=== PATIENT | female | born 1975 | race Caucasian/White ===

== ENCOUNTER 2017-04-08 00:57 | Inpatient (IN) | payer OTHER ==
--- NOTE | ~2017-04-08 | HP ---
Unit #: [id number] #: [id number] Patient: PRICILA COY [id number] [facility]. [place], [place] [address] [id number] MR#: [id number] NAME: PRICILA COY ROOM: 241 Age: 42 Sex: F Admission Date: 04/08/2017 : 1975 Attending Physician: Blaise Painter M.D. Primary Care Physician: Adali Hernández M.D. HISTORY AND PHYSICAL CHIEF COMPLAINT Sore throat, hoarse voice, upper respiratory congestion, shortness of breath. HISTORY OF PRESENT ILLNESS The patient is a 42-year-old female with past medical history of tobacco usage, COPD, who presents to [facility] due to symptoms of shortness of breath, upper respiratory congestion as well as hoarse voice. This has been ongoing for the past three days. The patient tells me that she is allergic to fresh cut grass and her neighbor had cut some grass a couple of days ago. She has been out of her inhalers and has been having symptoms of shortness of breath, cough and congestion and presents to the emergency department for further evaluation. The patient states symptoms are similar to previous symptoms of acute COPD exacerbation. The patient is an active tobacco user. The patient states that she had quit three years ago but had started smoking again due to significant stress in her life. Currently, the patient denies chest pain, nausea, vomiting, diarrhea. The patient denies fevers and chills. The patient tells me that when she went downstairs and came back up she still got dyspneic but she is feeling better than when she originally came to the emergency department. PAST MEDICAL HISTORY Positive for tobacco usage. Positive for allergic rhinitis. Positive for COPD. PAST SURGICAL HISTORY Bilateral tubal ligation. SOCIAL HISTORY The patient lives at home with her father and her sons. The patient smokes a half to one pack a day for the past three days and the patient had quit nine years before that but the patient is a lifelong smoker. The patient drinks a couple of margaritas yearly. The patient does admit to smoking marijuana. FAMILY HISTORY The patient states is positive for cancer, hypertension, diabetes, coronary artery disease. ALLERGIES Latex and Ultram. The patient states she has severe nausea and vomiting with Ultram. Unit #: [id number] #: [id number] Patient: PRICILA COY HOME MEDICINES 1. Wellbutrin 150 mg orally twice daily. 2. Celexa listed as 20 mg orally at bedtime but the patient states that she no longer uses this. 3. Breo 100/25 mcg one puff inhaled daily. 4. The patient also uses an as needed albuterol inhaler. REVIEW OF SYSTEMS Notable for shortness of breath, coughing, hoarse voice, upper respiratory congestion. All other systems reviewed and otherwise negative. PHYSICAL EXAMINATION GENERAL APPEARANCE: The patient is a pleasant 42-year-old female sitting in bed in no apparent acute distress. VITAL SIGNS: Temperature 97.6. Pulse 106. Respiratory rate 21. Blood pressure 175/82. The patient is noted to have oxygen saturation of 95% on room air. HEAD, EYES, EARS, NOSE AND THROAT: Eyes: PERRLA. Extraocular motor muscles intact. Pharynx is benign. NECK: Supple without adenopathy or thyromegaly. CHEST: The patient does have bilateral expiratory wheezes at the bilateral bases. Upper chest with good air movement in and out. HEART: Normal S1, S2. The patient does have mild tachycardia. ABDOMEN: Bowel sounds are present. No hepatosplenomegaly. No tenderness. No mass. Nondistended. Nontender. EXTREMITIES: No pitting edema is noted. No drainage. No redness noted. NEUROLOGIC: The patient is awake, alert, oriented. Cranial nerves are intact. Strength is equal throughout. DIAGNOSTIC STUDIES LABORATORY: Chemistry: Glucose 138, BUN 7, creatinine 0.7, sodium 138, potassium 2.8, chloride 106, CO2 23, calcium 8.5. CBC with WBC of 15.5, RBC 4.54, hemoglobin 13.9, hematocrit 41.9, MCV 92.3, MCH 30.6, MCHC 33.1, RDW 13.6, platelets 242, MPV 8.0. Please note that strep throat screen is negative for strep DNA. IMAGING: The patient did have a chest x-ray. Portable view of the chest demonstrates mild pulmonary hyperinflation, which may represent underlying reactive airway disease. No acute airspace disease or consolidation. No effusions. Heart, mediastinum unremarkable. Degenerative changes noted in both AC joints. ASSESSMENT AND PLAN 1. Acute COPD exacerbation. We will be treating with steroids, bronchodilator, mucolytics. 2. Leukocytosis, likely reactive. It does not appear to have pneumonia. We will be checking a procalcitonin. We will check urinalysis as well. If procalcitonin is elevated, we will continue with Zithromax that was started. If procalcitonin is not elevated, we will discontinue this. 3. Allergic rhinitis. We will be adding Claritin to her treatment 10 mg orally daily. 4. Tobacco abuse. Utilizing nicotine patch at this time. I have stressed cessation with the patient. The patient is also noted to have tachycardia. We will be checking a urine drug screen. The patient may be withdrawing from the nicotine. Unit #: [id number] #: [id number] Patient: PRICILA COY Dictated by Sarita Yanes PA-C for Niels Barrett/amber TD: 04/08/2017 13:18 JOB #: [id number] HISTORY AND PHYSICAL Page 1 of 1 X X HISTORY AND PHYSICAL
--- NOTE | ~2017-04-08 | CR72 ---
[facility] A Service of [facility] & [facility] RADIOLOGY TEXT RESULTS PATIENT: PRICILA COY LOCATION: [place] [address] : [birth year] UNIT #: [id number] AGE: [address]: Blaise Painter MD SEX: F ORDER DR: [id number] [facility] [address] [place] [facility]. [place], [place] [address] [id number] MR#: [id number] Acc #: [id number] NAME: PRICILA COY : 1975 SEX: F STUDY DATE/TIME: 04/08/2017 1:53 UNIT: [facility] ROOM: STUDY DESCRIPTION: CR Chest Single View Portable Attending Physician: Hunter Maharaj M.D. Ordering Physician: Hunter Maharaj M.D. Primary Care Physician: Adali Hernández M.D. MEDICAL IMAGING REPORT This report is preliminary unless electronic signature is present EXAM Portable chest HISTORY Shortness of air, asthma, COPD COMPARISON 09/13/2016 FINDINGS Portable view of the chest demonstrates mild pulmonary hyperinflation, which may reflect underlying reactive airway disease. No acute airspace disease or consolidation. No effusions. Heart, mediastinum unremarkable. Degenerative changes noted in both AC joints. Dictated by... Martine Tobin M.D. THIS IS AN ELECTRONICALLY VERIFIED REPORT Martine Tobin M.D. at 04/08/2017 10:32 PM HALLEY/elise TD: 04/08/2017 03:07 JOB #: [id number] MEDICAL IMAGING REPORT Page 1 of 1 COPY
--- NOTE | ~2017-04-08 | EKG ---
PATIENT: PRICILA COY UNIT #: [id number] Ventricular Rate: 125 BPM Atrial Rate: 125 BPM P-R Interval: 144 ms QRS Duration: 82 ms Q-T Interval: 326 ms QTC Calculation(Bezet): 470 ms P Brick: 78 degrees Calculated R Brick: 94 degrees Calculated T Brick: 29 degrees Diagnosis Line: Sinus tachycardia Diagnosis Line: Rightward axis Diagnosis Line: Nonspecific ST abnormality Diagnosis Line: Abnormal ECG Diagnosis Line: Diagnosis Line: Confirmed by MELVIN HENDERSON MD ([id number]) on 04/08/2017 Diagnosis Line: 10:07:32 AM INTERPRETING MD: BEATRIZ LOYOLA
--- NOTE | ~2017-04-08 | DS ---
Unit #: [id number] #: [id number] Patient: PRICILA COY [id number] [facility]. [place], [place] [address] [id number] I MR#: [id number] NAME: PRICILA COY ROOM: 241 Age: 42 Sex: F Admission Date: 04/08/2017 : 1975 Discharge Date: 04/09/2017 Attending Physician: Blaise Paniter M.D. Primary Care Physician: Adali Hernández M.D. DISCHARGE SUMMARY DISCHARGE DIAGNOSES 1. Acute chronic obstructive pulmonary disease exacerbation. 2. Allergic rhinitis. 3. Tobacco abuse. 4. Leukocytosis. 5. Sinus tachycardia. PROCEDURES PERFORMED None. CONSULTANTS None. DIAGNOSTIC DATA IMAGING: Chest x-ray on 04/08/2017, impression of findings mild pulmonary hyperinflation which may reflect underlying reactive airway disease. No acute airspace disease or consolidation or effusion. Heart and mediastinum unremarkable. Degenerative changes noted in both AC joints. LABORATORY: Today, BMP with glucose 149, BUN 6, creatinine 0.6, sodium 137, potassium 4.0, chloride 110, CO2 18, calcium 9.0, magnesium 1.9. CBC with white blood cell count 15.5, RBC 4.54, hemoglobin 13.9, hematocrit 41.9, MCV 92.3, MCH 30.6, MCHC 33.1, RDW 13.6, platelets 242, MPV 8.0. HOSPITAL COURSE The patient is a 42-year-old female with a past medical history of tobacco usage and chronic obstructive pulmonary disease. She presented to [facility] due to symptoms of sore throat, hoarse voice and upper respiratory congestion. The patient stated that she is a lifelong smoker and tried quitting for some time, but had restarted smoking three years ago. She smokes about half to one pack per day. To also is allergic to fresh cut grass. Three days ago her neighbor had cut some grass and she started to have some symptoms of shortness of breath and congestion. The patient has also been coughing. Of note, the patient has coughed so much that her voice is hoarse. Therefore, she presented to the emergency department due to symptoms as above, hoarse voice and congestion. She did have a chest x-ray which was unremarkable. She was treated for acute chronic obstructive pulmonary disease exacerbation with IV steroid, bronchodilators, mucolytics. We did check a procalcitonin level which was less than 0.05, (1) undetectable. Strep throat was tested and was negative for strep DNA. At this time the patient is ambulating out of the hospital for breaks. She states that she is back to her usual state and was not oxygen dependent. Therefore, she is ready to be discharged home. Stressed to the patient the need to abstain from Unit #: [id number] #: [id number] Patient: PRICILA COY further tobacco usage as this is her main problem with ongoing chronic obstructive pulmonary disease and exacerbation. She voiced understanding and said that she would like to try to quit smoking. DISCHARGE CONDITION Stable. ACTIVITY Unlimited. DISCHARGE DIET The patient is to resume a heart healthy diet as prior to hospitalization. Also, please note the patient does have a fasting blood glucose of 149. Urinalysis was obtained, which showed the patient has spill of glucose into her urine, greater than 10,000. No ketones present. The patient does not appear to be in any state of ketoacidosis. I would recommend that the patient follow up with her family doctor to work up for diabetes. DISCHARGE MEDICATION 1. Albuterol inhaler q.i.d. p.r.n. 1 puff for shortness of breath and/or wheezing. 2. Prednisone 40 mg p.o. daily for 3 days, 30 mg p.o. daily for 3 days, 20 mg p.o. daily for 3 days, 10 mg p.o. daily for 3 days. 3. Wellbutrin 150 mg p.o. b.i.d. 4. The patient stated that she does not take Celexa. 5. Claritin 10 mg p.o. daily. 6. Nicotine patch. The patient can get this over the counter to try to abstain from smoking. 7. The patient states that she uses Symbicort 160 mcg 2 puffs in haled b.i.d. at home. Dictated by... Sarita Yanes PA-C for Niels Barrett TD: 04/10/2017 11:14 JOB #: [id number] DISCHARGE SUMMARY Page 1 of 1 X X DISCHARGE SUMMARY
[~2017-04-08 00:57] MED LIST: ATARAX PO; CIPRO PO; FLAGYL PO; KETOPROFEN PO; MILLIPRED DP5 M1 PO; PROVERA PO; PYRIDIUM PO; TYLOX1 CAP 5/50 DOB; VICODIN 5/500 T1 TAB PO; ZITHROMAX PO; ZOFRAN PO
[2017-04-08 04:44] LABS: BASOPHIL% 0.2 % (0-2.5); DIFF IND YES; EOSINOPHIL% 0.2 % (0.0-7.0); HEMATOCRIT 41.9 % (35.0-45.0); HEMOGLOBIN 13.9 gm/dL (12.0-16.0); LYMPHOCYTE# 1.1 X10e3 (1.0-3.5); LYMPHOCYTE% 7.1 % (17.0-45.0); MEAN CELL VOLUME 92.3 FL (83-96); MEAN CORPUSCULAR HEMOGLOBIN 30.6 PG (28-34); MEAN CORPUSCULAR HGB CONC 33.1 g/dL (30-36); MONOCYTE# 0.5 X10e3 (0-1.0); MONOCYTE% 3.1 % (3.0-12.0); NEUTROPHIL# 13.8 X10e3 (1.5-7.1); NEUTROPHIL% 89.4 % (40-75); PLATELET COUNT 242 X10e3 (140-420); RED BLOOD COUNT 4.54 X10e (3.90-5.30); RED CELL DISTRIBUTION WIDTH 13.6 % (11.0-15.5); WHITE BLOOD COUNT 15.5 X10e3 (4.0-10.5)
[2017-04-08 04:54] LABS: INR 1.1; PROTHROMBIN TIME (PATIENT) 11.7 SECONDS (9.6-11.5)
[2017-04-08 05:09] LABS: CALCIUM SERUM 8.5 mg/dL (8.4-10.2); CREATININE SERUM 0.7 mg/dL (0.6-1.4); GLOM FILT RATE Estimated 107.6 mL/min (>60)
[2017-04-08 05:12] LABS: POTASSIUM 2.8 mmol/L (3.5-5.1)
[2017-04-08 05:20] LABS: PLATELET ESTIMATE NORMAL (NORMAL)
[2017-04-08] MEDS ORDERED: BREO ELLIPTA 11 EACH INH (10:52)
[2017-04-08] MEDS ORDERED: BUPROPION HCL150 M2 PO (10:53)
[2017-04-08] MEDS ORDERED: CELEXA20 MG PO (10:53)
[2017-04-08 14:16] LABS: URINE APPEARANCE CLEAR; URINE BILIRUBIN NEG (NEG); URINE BLOOD NEG (NEG); URINE COLOR YELLOW; URINE GLUCOSE >1000 MG/DL (NEG); URINE KETONE NEG (NEG); URINE LEUKOCYTE ESTERASE NEG (NEG); URINE NITRATE NEG (NEG); URINE PH 7.5 (5-8); URINE PROTEIN NEG (NEG)
[2017-04-08 14:23] LABS: CULTURE INDICATED? NO
[2017-04-08 14:26] LABS: AMPHETAMINE NEG (NEG); BARBITURATES NEG (NEG); BENZODIAZEPINES NEG (NEG); COCAINE NEG (NEG); MARIJUANA POS (NEG); OPIATES NEG (NEG); TRICYCLIC ANTIDEPRESSANTS NEG (NEG); U METHADONE NEG (NEG)
[2017-04-08 14:29] LABS: BLOOD UREA NITROGEN 6 mg/dL (9-23); CARBON DIOXIDE 18 mmol/L (22-31); CHLORIDE 110 mmol/L (100-111); CREATININE SERUM 0.6 mg/dL (0.6-1.4); GLOM FILT RATE Estimated 113.2 mL/min (>60); GLUCOSE FASTING 149 mg/dL (70-110); MAGNESIUM 1.9 mg/dL (1.6-3.0); SODIUM 137 mmol/L (135-145)
[2017-04-08 14:37] LABS: THYROID STIMULATING HORMONE 0.35 uIU/ml (0.34-5.60)
[2017-04-08 14:44] LABS: FREE THYROXIN (T4) 1.11 ng/dL (0.58-1.64)
[2017-04-08 14:47] LABS: PROCALCITONIN <0.05 NG/ML
[2017-04-09] MEDS ORDERED: COMBIVENT U/D3 M2 INH (09:53)
[2017-04-09] MEDS ORDERED: NICOTINE1 EAC1 TD (09:55)
[2017-04-09] MEDS ORDERED: CLARITIN10 M3 PO (09:55)
[2017-04-09] MEDS ORDERED: PREDNISONE PO (09:57)
[2017-04-09] MEDS ORDERED: SYMBICORT INH (09:58)
[2017-04-09] MEDS ORDERED: ALBUTEROL0.63 MG/3 INH (09:59)
== END 2017-04-09 10:20 | disposition home or self-care (01) | DRG 192 ==
LOC: CED 00:57 → CEDOF 05:50 → C2A 06:01 → CED 06:01 → CEDOF 07:42 → C2A 09:14
PROVIDERS: Emergency Medicine; Physician Assistant Medical
DX: J44.1 Chronic obstructive pulmonary disease with (acute) exacerbation (principal); D72.829 Elevated white blood cell count, unspecified; F17.210 Nicotine dependence, cigarettes, uncomplicated; J30.9 Allergic rhinitis, unspecified; Z98.51 Tubal ligation status; Z83.3 Family history of diabetes mellitus; Z82.49 Family history of ischemic heart disease and other diseases of the circulatory system; Z80.9 Family history of malignant neoplasm, unspecified; Z91.040 Latex allergy status
CPT/HCPCS: 71010; 80048; 80307; 81003; 82308; 83605; 83735; 84439; 84443; 85025; 85379; 85610; 87070; 87205; 87651; 93005; 94640; 94760; 96361; 96374; 99285; J0456; J2920; J2930